=== PATIENT | female | born 1955 | race Caucasian/White ===

== ENCOUNTER 2016-05-22 15:27 | Emergency (ER) | payer MEDICARE ==
[2016-05-22] MEDS ORDERED: LABETALOL 100 MG/20 ML VIAL ONE ×2 (16:28→19:48)
[2016-05-22] MEDS ORDERED: METOCLOPRAMIDE 10 MG/2 ML VIAL ONE (19:16)
[2016-05-22] MEDS ORDERED: DIPHENHYDRAMINE 50 MG/ML VIAL ONE (19:17)
== END 2016-05-22 20:08 | disposition home or self-care (01) ==
LOC: ER 15:27
CPT/HCPCS: 36415; 70450; 80053; 81003; 85025; 93005; 96374; 96375; 96376